=== PATIENT | male | born 1955 | race Caucasian/White ===

== ENCOUNTER 2021-07-04 06:19 | Inpatient (IN) ==
[2021-07-04 06:48] LABS: Basophils # 0.1 K/mcL (0.0-0.2); Basophils % 0.4 %; Eosinophils # 0.1 K/mcL (0.0-0.6); Eosinophils % 0.4 %; Hematocrit 35.1 % (37.5-50.1); Hemoglobin 11.6 g/dL (12.9-16.9); Immature Granulocytes % 0.6 % (0-4); Lymphocytes # 1.1 K/mcL (0.6-4.6); Lymphocytes % 8.3 %; Mean Corpuscular Hemoglobin 28.7 pg (28.0-33.3); Mean Corpuscular Volume 86.9 fL (83.0-100.0); Mean Platelet Volume 10.6 fL (9.4-12.4); Monocytes % 8.3 %; Neutrophils # 10.3 K/mcL (1.6-8.9); Platelet Count 246 K/mcL (140-400); Red Blood Count 4.04 M/mcL (4.19-5.50); Red Cell Distribution Width 11.9 % (11.5-14.5); White Blood Count 12.6 K/mcL (4.3-11.1)
[2021-07-04 06:57] LABS: INR 1.3; Prothrombin Time 14.5 Seconds (9.4-12.1)
[2021-07-04 06:59] LABS: Activated Partial Thrombo Time 38.2 Seconds (26.0-36.0)
[2021-07-04 07:09] LABS: Calcium 9.3 mg/dL (8.6-10.3); Potassium 3.7 mEq/L (3.5-5.1); Troponin I 0.03 ng/mL (< 0.04)
[2021-07-04] MEDS ORDERED: Aspirin 325 MG TABLET PO ONE (07:26)
[2021-07-04] MEDS ORDERED: Ondansetron 4 MG/2 ML VIAL IVP PRN (07:29)
[2021-07-04] MEDS ORDERED: Naloxone 0.4 MG/ML INJ IVP PRN (07:29)
[2021-07-04 07:46] LABS: Magnesium 1.9 mg/dL (1.6-2.6); Phosphorous 4.3 mg/dL (2.7-4.5)
[2021-07-04] MEDS ORDERED: D5% in Water 1,000 ML IVC PRN (07:56)
[2021-07-04] MEDS ORDERED: *HR* Dextrose 50 % in Water (Syg) 50 ML SYRINGE IVP PRN (07:56)
[2021-07-04] MEDS ORDERED: Dextrose Gel 15 GM/37.5 ML TUBE PO PRN ×2 (07:56)
[2021-07-04 08:32] LABS: Influenza A PCR Negative (Negative); Influenza B PCR Negative (Negative); Resp. Syncytial Virus PCR Negative (Negative); SARS-CoV-2 by PCR (In House) Negative (Negative)
[2021-07-04] MEDS: Insulin LISPRO 300 UNITS/3 ML VIAL SUBQ SCH ×3 (11:22→20:33)
[2021-07-04] MEDS ORDERED: Furosemide 40 MG/4 ML VIAL IVP ONE (11:53)
[2021-07-04] MEDS: *HR* Heparin 5,000 UNIT/ML VIAL SQ SCH ×2 (12:34→20:32)
[2021-07-04] MEDS ORDERED: Perflutren Lipid Microsphere 1.3 ML in 0.9 % Sodium Chloride 8.7 ML IVP PRN (12:56)
[2021-07-04] MEDS: tiZANidine 4 MG TABLET PO SCH (16:57)
[2021-07-04] MEDS: Ciprofloxacin HCL Soln 5 ML BOTTLE RIGHT EYE SCH ×4 (16:58→23:58)
[2021-07-04] MEDS: carvediloL 25 MG TABLET PO SCH (16:59)
[2021-07-04] MEDS: Ranolazine 500 MG TAB.ER.12H PO SCH (20:31)
[2021-07-05 03:19] LABS: Basophils # 0.1 K/mcL (0.0-0.2); Basophils % 0.6 %; Eosinophils # 0.1 K/mcL (0.0-0.6); Eosinophils % 0.6 %; Hemoglobin 11.5 g/dL (12.9-16.9); Immature Granulocytes % 0.7 % (0-4); Lymphocytes # 1.4 K/mcL (0.6-4.6); Lymphocytes % 11.3 %; Mean Corpuscular HGB Conc 33.8 g/dL (31.6-35.5); Mean Corpuscular Hemoglobin 29.2 pg (28.0-33.3); Mean Corpuscular Volume 86.3 fL (83.0-100.0); Mean Platelet Volume 10.3 fL (9.4-12.4); Monocytes # 1.2 K/mcL (0.0-1.3); Monocytes % 10.2 %; Neutrophils # 9.4 K/mcL (1.6-8.9); Platelet Count 253 K/mcL (140-400); Red Blood Count 3.94 M/mcL (4.19-5.50); Red Cell Distribution Width 11.9 % (11.5-14.5); Segmented Neutrophils % 76.6 %; White Blood Count 12.2 K/mcL (4.3-11.1)
[2021-07-05 03:45] LABS: Calcium 9.2 mg/dL (8.6-10.3); Magnesium 2.2 mg/dL (1.6-2.6); Potassium 3.7 mEq/L (3.5-5.1)
[2021-07-05] MEDS: Ciprofloxacin HCL Soln 5 ML BOTTLE RIGHT EYE SCH ×5 (05:51→20:56)
[2021-07-05] MEDS: *HR* Heparin 5,000 UNIT/ML VIAL SQ SCH ×3 (05:51→20:55)
[2021-07-05] MEDS: Ranolazine 500 MG TAB.ER.12H PO SCH ×2 (07:37→20:52)
[2021-07-05] MEDS: carvediloL 25 MG TABLET PO SCH ×2 (07:37→17:02)
[2021-07-05] MEDS: Benzonatate 100 MG CAPSULE PO PRN (07:39)
[2021-07-05] MEDS: Aspirin 81 MG TAB.CHEW PO SCH (07:40)
[2021-07-05] MEDS: Isosorbide MONOnitrate (24 HR) 60 MG TAB.ER.24H PO SCH (07:40)
[2021-07-05] MEDS: Insulin LISPRO 300 UNITS/3 ML VIAL SUBQ SCH ×4 (07:40→20:54)
[2021-07-05] MEDS ORDERED: Furosemide 40 MG/4 ML VIAL IVP ONE (08:35)
[2021-07-05] MEDS: Piperacillin/Tazobactam 3.375 GM in 0.9 % Sodium Chloride Mini Bag 100 ML IVPB SCH ×3 (10:50→23:12)
[2021-07-05 16:54] LABS: Adenovirus Not Detected (Not Detect); Coronavirus 229E Not Detected (Not Detect); Coronavirus HKU1 Not Detected (Not Detect); Coronavirus NL63 Not Detected (Not Detect); Coronavirus OC43 Not Detected (Not Detect); Human Metapneumovirus Not Detected (Not Detect); Human Rhinovirus/Enterovirus Not Detected (Not Detect); SARS-CoV-2 Not Detected (Not Detect)
[2021-07-05 16:55] LABS: Bordetella Pertussis Not Detected (Not Detect); Chlamydophila pneumoniae Not Detected (Not Detect); Influenza A Subtype 2009 H1 Not Detected (Not Detect); Influenza B Not Detected (Not Detect); Mycoplasma pneumoniae Not Detected (Not Detect); Parainfluenza Virus 1 Not Detected (Not Detect); Parainfluenza Virus 2 Not Detected (Not Detect); Parainfluenza Virus 3 Not Detected (Not Detect); Parainfluenza Virus 4 Not Detected (Not Detect); Respiratory Syncytial Virus Not Detected (Not Detect)
[2021-07-05] MEDS: tiZANidine 4 MG TABLET PO SCH (17:02)
[2021-07-05] MEDS: MethylPREDNISolone 40 MG/ML VIAL IVP SCH (17:03)
[2021-07-06] MEDS: Ciprofloxacin HCL Soln 5 ML BOTTLE RIGHT EYE SCH ×6 (01:23→21:31)
[2021-07-06 02:56] LABS: Basophils % 0.1 %; Immature Granulocytes % 1.2 % (0-4); Lymphocytes # 0.6 K/mcL (0.6-4.6); Mean Corpuscular Hemoglobin 28.9 pg (28.0-33.3); Mean Corpuscular Volume 87.5 fL (83.0-100.0); Mean Platelet Volume 10.8 fL (9.4-12.4); Monocytes # 0.3 K/mcL (0.0-1.3); Monocytes % 2.3 %; Neutrophils # 10.3 K/mcL (1.6-8.9); Platelet Count 255 K/mcL (140-400); Red Blood Count 3.43 M/mcL (4.19-5.50); Red Cell Distribution Width 11.9 % (11.5-14.5); Segmented Neutrophils % 91.4 %; White Blood Count 11.3 K/mcL (4.3-11.1)
[2021-07-06 03:02] LABS: Hemoglobin 9.9 g/dL (12.9-16.9)
[2021-07-06 03:20] LABS: Potassium 4.1 mEq/L (3.5-5.1)
[2021-07-06 03:21] LABS: Albumin 3.5 g/dL (3.5-5.7); Bilirubin,Total 0.4 mg/dL (0.3-1.0); Calcium 8.7 mg/dL (8.6-10.3); Globulin 3.4 g/dL (2.4-3.5); Total Protein 6.9 g/dL (6.4-8.9)
[2021-07-06] MEDS ORDERED: Insulin Human Regular 10 UNIT in 0.9 % Sodium Chloride 10 ML IV ONE ×3 (03:24→15:33)
[2021-07-06] MEDS: *HR* Heparin 5,000 UNIT/ML VIAL SQ SCH ×3 (06:03→21:34)
[2021-07-06] MEDS: MethylPREDNISolone 40 MG/ML VIAL IVP SCH (06:03)
[2021-07-06] MEDS ORDERED: 0.9 % Sodium Chloride 1,000 ML IVC SCH (07:45)
[2021-07-06] MEDS: Nitroglycerin 0.4 MG TAB.SUBL SL PRN (08:57)
[2021-07-06] MEDS: Piperacillin/Tazobactam 3.375 GM in 0.9 % Sodium Chloride Mini Bag 100 ML IVPB SCH ×3 (08:58→23:59)
[2021-07-06] MEDS ORDERED: Insulin DETEMIR 100 UNIT/ML X5UNITS SUBQ SCH (09:00)
[2021-07-06] MEDS: Aspirin 81 MG TAB.CHEW PO SCH (09:01)
[2021-07-06] MEDS: carvediloL 25 MG TABLET PO SCH ×2 (09:01→17:18)
[2021-07-06] MEDS: Ranolazine 500 MG TAB.ER.12H PO SCH ×2 (09:01→21:28)
[2021-07-06] MEDS: Isosorbide MONOnitrate (24 HR) 60 MG TAB.ER.24H PO SCH (09:01)
[2021-07-06] MEDS: Insulin LISPRO 300 UNITS/3 ML VIAL SUBQ SCH ×6 (09:02→21:33)
[2021-07-06] MEDS ORDERED: Isosorbide MONOnitrate (24 HR) 30 MG TAB.ER.24H PO ONE (13:15)
[2021-07-06] MEDS: tiZANidine 4 MG TABLET PO SCH (17:19)
[2021-07-06] MEDS: Menthol 1 EACH LOZENGE PO PRN ×2 (18:39→21:29)
[2021-07-06] MEDS: Benzonatate 100 MG CAPSULE PO PRN (21:29)
[2021-07-06] MEDS: Insulin DETEMIR 100 UNIT/ML X5UNITS SUBQ SCH (21:30)
[2021-07-07] MEDS: Ciprofloxacin HCL Soln 5 ML BOTTLE RIGHT EYE SCH ×6 (00:02→20:44)
[2021-07-07] MEDS: Nitroglycerin 0.4 MG TAB.SUBL SL PRN ×2 (02:17→21:46)
[2021-07-07 03:17] LABS: Hematocrit 28.3 % (37.5-50.1); Hemoglobin 9.5 g/dL (12.9-16.9); Mean Corpuscular HGB Conc 33.6 g/dL (31.6-35.5); Mean Corpuscular Hemoglobin 29.1 pg (28.0-33.3); Mean Corpuscular Volume 86.8 fL (83.0-100.0); Mean Platelet Volume 10.5 fL (9.4-12.4); Platelet Count 280 K/mcL (140-400); Red Blood Count 3.26 M/mcL (4.19-5.50); Red Cell Distribution Width 11.8 % (11.5-14.5); White Blood Count 15.1 K/mcL (4.3-11.1)
[2021-07-07 03:33] LABS: Calcium 8.7 mg/dL (8.6-10.3); Potassium 4.2 mEq/L (3.5-5.1)
[2021-07-07] MEDS: *HR* Heparin 5,000 UNIT/ML VIAL SQ SCH ×3 (05:02→20:43)
[2021-07-07] MEDS: Piperacillin/Tazobactam 3.375 GM in 0.9 % Sodium Chloride Mini Bag 100 ML IVPB SCH (08:03)
[2021-07-07] MEDS: predniSONE 20 MG TABLET PO SCH (08:04)
[2021-07-07] MEDS: Aspirin 81 MG TAB.CHEW PO SCH (08:04)
[2021-07-07] MEDS: Isosorbide MONOnitrate (24 HR) 60 MG TAB.ER.24H PO SCH (08:04)
[2021-07-07] MEDS: Ranolazine 500 MG TAB.ER.12H PO SCH ×2 (08:05→19:32)
[2021-07-07] MEDS: Insulin DETEMIR 100 UNIT/ML X5UNITS SUBQ SCH ×2 (08:05→20:43)
[2021-07-07] MEDS: carvediloL 25 MG TABLET PO SCH ×2 (08:05→17:12)
[2021-07-07] MEDS: Insulin LISPRO 300 UNITS/3 ML VIAL SUBQ SCH ×7 (08:05→20:43)
[2021-07-07] MEDS ORDERED: MethylPREDNISolone 40 MG/ML VIAL IVP SCH (09:00)
[2021-07-07] MEDS: cefTRIAXone 1,000 MG in 0.9 % Sodium Chloride Mini Bag 100 ML IVPB SCH (17:10)
[2021-07-07] MEDS: tiZANidine 4 MG TABLET PO SCH (17:12)
[2021-07-07 18:28] LABS: Estimated Average Glucose 217 mg/dl; Hemoglobin A1C 9.2 %
[2021-07-07] MEDS: Menthol 1 EACH LOZENGE PO PRN ×2 (19:32→21:45)
[2021-07-07] MEDS: Benzonatate 100 MG CAPSULE PO PRN (21:50)
[2021-07-08] MEDS: Ciprofloxacin HCL Soln 5 ML BOTTLE RIGHT EYE SCH ×7 (01:10→23:38)
[2021-07-08 01:23] LABS: Basophils # 0.1 K/mcL (0.0-0.2); Basophils % 0.4 %; Eosinophils % 0.1 %; Hematocrit 29.4 % (37.5-50.1); Hemoglobin 9.4 g/dL (12.9-16.9); Immature Granulocytes % 5.9 % (0-4); Lymphocytes # 1.2 K/mcL (0.6-4.6); Lymphocytes % 8.8 %; Mean Corpuscular Hemoglobin 28.2 pg (28.0-33.3); Mean Corpuscular Volume 88.3 fL (83.0-100.0); Mean Platelet Volume 10.2 fL (9.4-12.4); Monocytes # 0.8 K/mcL (0.0-1.3); Monocytes % 5.8 %; Neutrophils # 10.7 K/mcL (1.6-8.9); Platelet Count 285 K/mcL (140-400); Red Blood Count 3.33 M/mcL (4.19-5.50); White Blood Count 13.5 K/mcL (4.3-11.1)
[2021-07-08 01:47] LABS: Calcium 8.6 mg/dL (8.6-10.3); Potassium 4.3 mEq/L (3.5-5.1)
[2021-07-08 01:51] LABS: Platelet Estimate Normal (Normal)
[2021-07-08] MEDS: *HR* Heparin 5,000 UNIT/ML VIAL SQ SCH ×3 (05:39→21:43)
[2021-07-08] MEDS: Insulin LISPRO 300 UNITS/3 ML VIAL SUBQ SCH ×7 (08:01→21:43)
[2021-07-08] MEDS: Insulin DETEMIR 100 UNIT/ML X5UNITS SUBQ SCH ×2 (08:02→21:43)
[2021-07-08] MEDS: Ranolazine 500 MG TAB.ER.12H PO SCH ×2 (08:02→21:44)
[2021-07-08] MEDS: Aspirin 81 MG TAB.CHEW PO SCH (08:02)
[2021-07-08] MEDS: Benzonatate 100 MG CAPSULE PO PRN (08:02)
[2021-07-08] MEDS: predniSONE 20 MG TABLET PO SCH (08:03)
[2021-07-08] MEDS: Isosorbide MONOnitrate (24 HR) 60 MG TAB.ER.24H PO SCH (08:03)
[2021-07-08] MEDS: carvediloL 25 MG TABLET PO SCH ×2 (08:03→16:19)
[2021-07-08] MEDS: Ipratropium/Albuterol Neb 3 ML IH SCH ×3 (12:01→22:41)
[2021-07-08] MEDS: Budesonide/Formoterol 160/4.5 1 PUFF INH IH SCH ×2 (12:01→22:41)
[2021-07-08] MEDS: cefTRIAXone 1,000 MG in 0.9 % Sodium Chloride Mini Bag 100 ML IVPB SCH (16:19)
[2021-07-08] MEDS: tiZANidine 4 MG TABLET PO SCH (16:19)
[2021-07-09] MEDS: Ipratropium/Albuterol Neb 3 ML IH SCH ×2 (03:27→09:55)
[2021-07-09] MEDS: Ciprofloxacin HCL Soln 5 ML BOTTLE RIGHT EYE SCH ×2 (03:37→07:31)
[2021-07-09 03:47] VITALS: TEMP 97.6
[2021-07-09 05:10] LABS: Hemoglobin 9.7 g/dL (12.9-16.9); Lymphocytes # 1.6 K/mcL (0.6-4.6); Mean Corpuscular HGB Conc 32.3 g/dL (31.6-35.5); Mean Corpuscular Hemoglobin 28.5 pg (28.0-33.3); Mean Corpuscular Volume 88.2 fL (83.0-100.0); Mean Platelet Volume 10.1 fL (9.4-12.4); Nucleated Red Blood Cells 0.1 /100 WBC (0); Platelet Count 297 K/mcL (140-400); White Blood Count 14.6 K/mcL (4.3-11.1)
[2021-07-09 05:18] LABS: Calcium 8.6 mg/dL (8.6-10.3); Potassium 3.8 mEq/L (3.5-5.1)
[2021-07-09] MEDS: *HR* Heparin 5,000 UNIT/ML VIAL SQ SCH (05:31)
[2021-07-09 06:19] LABS: Monocytes # 0.7 K/mcL (0.0-1.3); Neutrophils # 12.1 K/mcL (1.6-8.9); Platelet Estimate Normal (Normal)
[2021-07-09 07:16] VITALS: BP 143/71; PULSE 77
[2021-07-09] MEDS: Insulin LISPRO 300 UNITS/3 ML VIAL SUBQ SCH ×2 (07:30)
[2021-07-09] MEDS: Insulin DETEMIR 100 UNIT/ML X5UNITS SUBQ SCH (07:31)
[2021-07-09] MEDS: predniSONE 20 MG TABLET PO SCH (07:31)
[2021-07-09] MEDS: Ranolazine 500 MG TAB.ER.12H PO SCH (07:31)
[2021-07-09] MEDS: carvediloL 25 MG TABLET PO SCH (07:32)
[2021-07-09] MEDS: Aspirin 81 MG TAB.CHEW PO SCH (07:32)
[2021-07-09] MEDS: Isosorbide MONOnitrate (24 HR) 60 MG TAB.ER.24H PO SCH (07:32)
[2021-07-09] MEDS ORDERED: Cefdinir 300 MG CAPSULE PO SCH (09:00)
[2021-07-09] MEDS: Budesonide/Formoterol 160/4.5 1 PUFF INH IH SCH (09:55)
[2021-07-09 10:53] VITALS: O2SAT 95
== END 2021-07-09 12:24 | disposition home or self-care (01) | DRG 193 ==
LOC: 2ANU 06:19 → EMEROOARM 06:19 → 2ANU 10:09 → SUATTDRO 07-05 14:07
PROVIDERS: ADMIT Family Medicine; ATTEND General Practice